=== PATIENT | male | born 1975 | race Caucasian/White ===

== ENCOUNTER 2017-08-09 19:03 | Emergency (ER) | payer OTHER ==
[~2017-08-09] VITALS: Ht 180.3 cm; Wt 104.4 kg
[2017-08-09] MEDS ORDERED: CLEOCIN300 MG PO (21:48)
[2017-08-09] MEDS ORDERED: PERCOCET 5/31 TABLET PO (21:48)
[2017-08-09 22:05] VITALS: BP 143/93
== END 2017-08-09 22:06 | disposition home or self-care (01) ==
LOC: EXP 19:03 → EME 19:03 → EXP 22:06
PROC: 0H9EXZZ Drainage of Left Lower Arm Skin, External Approach (ICD-10-PCS; principal; 2017-08-09)
DX: L02.414 Cutaneous abscess of left upper limb (principal)
CPT/HCPCS: 87070; 87075; 87077; 87147; 87186; 87205; 99281; 99283

== ENCOUNTER 2017-08-11 16:21 | Emergency (ER) | payer OTHER ==
[~2017-08-11] VITALS: Ht 180.3 cm; Wt 104.1 kg
[~2017-08-11 16:21] MED LIST: CLEOCIN300 MG PO; PERCOCET 5/31 TABLET PO
[2017-08-11 16:23] VITALS: BP 144/96
== END 2017-08-11 17:12 | disposition home or self-care (01) ==
LOC: EME 16:21
DX: L02.414 Cutaneous abscess of left upper limb (principal); Z48.01 Encounter for change or removal of surgical wound dressing
CPT/HCPCS: 99281; 99283